=== PATIENT | female | born 1995 | race Hispanic/Latino ===

== ENCOUNTER 2017-10-26 11:29 | Emergency (ER) | payer MEDICAID, OTHER ==
[2017-10-26 12:09] LABS: HCG,QUAL RESULT POSITIVE (NEGATIVE)
[2017-10-26 12:10] LABS: APPEARANCE,URINE Cloudy (CLEAR); BILIRUBIN,URINE Negative (NEGATIVE); COLOR,URINE Dark Yellow (YELLOW); GLUCOSE, URINE (UA) Negative (NEGATIVE); KETONES,URINE 15 mg/dL (NEGATIVE); LEUKOCYTE ESTERASE ,URINE Small (NEGATIVE); NITRATE,URINE Negative (NEGATIVE); OCCULT BLOOD,URINE Negative (NEGATIVE); PROTEIN,URINE Negative (NEGATIVE)
[2017-10-26 12:16] LABS: RBC,URINE 0-1 /HPF (0-1)
[2017-10-26 12:17] LABS: AMORPHOUS SEDIMENT,UR Moderate /LPF (None Seen); BACTERIA,URINE Few /HPF (None Seen); SQUAMOUS EPITHELIAL CELL,UR Few /LPF (0-2)
== END 2017-10-26 14:06 | disposition home or self-care (01) ==
LOC: EDH 11:29
DX: O20.0 Threatened abortion (principal); Z3A.09 9 weeks gestation of pregnancy
CPT/HCPCS: 36415; 76801; 81001; 81025; 84702

== ENCOUNTER 2017-11-24 06:16 | Emergency (ER) | payer MEDICAID, OTHER ==
[2017-11-24 07:03] LABS: APPEARANCE,URINE Clear (CLEAR); BILIRUBIN,URINE Negative (NEGATIVE); COLOR,URINE Yellow (YELLOW); GLUCOSE, URINE (UA) Negative (NEGATIVE); KETONES,URINE Negative (NEGATIVE); LEUKOCYTE ESTERASE ,URINE Moderate (NEGATIVE); NITRATE,URINE Negative (NEGATIVE); OCCULT BLOOD,URINE Negative (NEGATIVE); PH,URINE 6.5 (5.0-8.0); PROTEIN,URINE Negative (NEGATIVE)
[2017-11-24 07:09] LABS: BACTERIA,URINE Rare /HPF (None Seen); RBC,URINE 0-1 /HPF (0-1); SQUAMOUS EPITHELIAL CELL,UR Few /LPF (0-2); WBC,URINE 0-1 /HPF (0-1)
== END 2017-11-24 07:34 | disposition home or self-care (01) ==
LOC: EDH 06:16
DX: O26.892 Other specified pregnancy related conditions, second trimester (principal); R42 Dizziness and giddiness; Z3A.18 18 weeks gestation of pregnancy
CPT/HCPCS: 81001; 81025

== ENCOUNTER 2018-10-19 15:10 | Emergency (ER) | payer MEDICAID, OTHER | END 2018-10-19 15:52 | disposition left against medical advice (07) | LOC: EDH 15:10 | DX: M25.562 Pain in left knee (principal); Z53.21 Procedure and treatment not carried out due to patient leaving prior to being seen by health care provider ==

== ENCOUNTER 2018-11-02 23:04 | Emergency (ER) | payer BC ==
[2018-11-02 23:34] LABS: APPEARANCE,URINE Clear (CLEAR); BILIRUBIN,URINE Negative (NEGATIVE); COLOR,URINE Yellow (YELLOW); GLUCOSE, URINE (UA) Negative (NEGATIVE); KETONES,URINE Negative (NEGATIVE); LEUKOCYTE ESTERASE ,URINE Negative (NEGATIVE); NITRATE,URINE Negative (NEGATIVE); OCCULT BLOOD,URINE Negative (NEGATIVE); PROTEIN,URINE Negative (NEGATIVE)
[2018-11-02 23:36] LABS: HCG,QUAL RESULT NEGATIVE (NEGATIVE)
[2018-11-02] MEDS ORDERED: IOHEXOL-350 75 ML VIAL IV ONE (23:51)
[2018-11-03 00:16] LABS: BASOPHILS % (AUTO) 0.9 % (0.0-5.0); EOSINOPHILS % (AUTO) 1.5 % (0.0-8.0); LYMPHOCYTES % (AUTO) 30.6 % (21.0-51.0); MEAN CORPUSCULAR HEMOGLOBIN 27.8 pg (27.0-33.0); MEAN CORPUSCULAR HGB CONC 33.5 g/dL (32.0-36.0); MEAN CORPUSCULAR VOLUME 83.1 fL (79-99); PLATELET COUNT (AUTO) 266 K/uL (130-400); RED BLOOD CELL COUNT(AUTO) 4.69 MIL/uL (4.00-5.50); WHITE BLOOD COUNT (AUTO) 9.4 K/uL (4.8-10.8)
[2018-11-03 00:24] LABS: CREATININE 0.7 mg/dL (0.5-1.5); POTASSIUM 3.7 mmol/L (3.5-5.1)
[2018-11-03 00:32] LABS: ALBUMIN 3.9 g/dL (3.5-5.0); BILIRUBIN,TOTAL 0.5 mg/dL (0.2-1.0); TOTAL PROTEIN, SERUM 7.4 g/dL (6.0-8.3)
== END 2018-11-03 04:08 | disposition home or self-care (01) ==
LOC: EDH 23:04
DX: R10.10 Upper abdominal pain, unspecified (principal); M54.6 Pain in thoracic spine; R11.2 Nausea with vomiting, unspecified; R19.7 Diarrhea, unspecified
CPT/HCPCS: 36415; 74150; 80053; 81003; 81025; 83690; 85025; 99285; Q9967

== ENCOUNTER 2019-06-25 08:29 | Emergency (ER) | payer BC, OTHER ==
[2019-06-25] MEDS ORDERED: DiphenhydrAMINE HCL 50 MG/ML VIAL ONE (09:11)
[2019-06-25] MEDS ORDERED: PROCHLORPERAZINE EDISYLATE 10 MG/2 ML VIAL ONE (09:12)
[2019-06-25] MEDS ORDERED: SODIUM CHLORIDE 0.9% 500ML 500 ML IV ONE (09:12)
== END 2019-06-25 09:55 | disposition home or self-care (01) ==
LOC: EDH 08:29
DX: R51 Headache (principal); R11.0 Nausea; I10 Essential (primary) hypertension
CPT/HCPCS: 96374; 96375; 99284; J0780; J1200; J7040

== ENCOUNTER 2019-07-20 18:44 | Emergency (ER) | payer SELFPAY | END 2019-07-20 19:23 | disposition home or self-care (01) | LOC: EDH 18:44 | DX: F43.0 Acute stress reaction (principal); F41.9 Anxiety disorder, unspecified ==

== ENCOUNTER 2019-10-23 12:20 | Emergency (ER) | payer OTHER ==
[2019-10-23 13:19] LABS: BASOPHILS % (AUTO) 0.7 % (0.0-5.0); EOSINOPHILS % (AUTO) 1.8 % (0.0-8.0); HEMATOCRIT 38.1 % (36-48); LYMPHOCYTES % (AUTO) 29.8 % (21.0-51.0); MEAN CORPUSCULAR HEMOGLOBIN 27.6 pg (27.0-33.0); MEAN CORPUSCULAR HGB CONC 32.3 g/dL (32.0-36.0); MEAN CORPUSCULAR VOLUME 85.6 fL (79-99); MONOCYTES % (AUTO) 5.4 % (3.0-13.0); NEUTROPHILS % (AUTO) 62.1 % (40.0-77.0); PLATELET COUNT (AUTO) 296 K/uL (130-400); RED BLOOD CELL COUNT(AUTO) 4.45 MIL/uL (4.00-5.50); RED CELL DISTRIBUTION WIDTH 13.2 % (11.0-15.5); WHITE BLOOD COUNT (AUTO) 8.7 K/uL (4.8-10.8)
[2019-10-23] MEDS ORDERED: MAG HYDROX/AL HYDROX/SIMETH ES 30 ML SUSP UDCUP ONE (13:22)
[2019-10-23] MEDS ORDERED: SODIUM CHLORIDE 0.9% 500ML 500 ML IV ONE (13:22)
[2019-10-23] MEDS ORDERED: LIDOCAINE HCL 2% VISCOUS 15 ML UDCUP ONE (13:23)
[2019-10-23 13:33] LABS: AMPHET/METH SCREEN,URINE NEGATIVE (NEGATIVE); BARBITURATE SCREEN, URINE NEGATIVE (NEGATIVE); BENZODIAZEPINES SCREEN,URINE NEGATIVE (NEGATIVE); CANNABINOID SCREEN,URINE NEGATIVE (NEGATIVE); COCAINE SCREEN,URINE NEGATIVE (NEGATIVE); OPIATE SCREEN,URINE NEGATIVE (NEGATIVE); PHENCYCLIDINE SCREEN,URINE NEGATIVE (NEGATIVE)
[2019-10-23 13:49] LABS: ALBUMIN 3.5 g/dL (3.5-5.0); BILIRUBIN,DIRECT 0.2 mg/dL (0.0-0.3); BILIRUBIN,TOTAL 0.7 mg/dL (0.2-1.0); POTASSIUM 3.7 mmol/L (3.5-5.1); TOTAL PROTEIN, SERUM 7.2 g/dL (6.0-8.3)
[2019-10-23 13:57] LABS: CREATININE 0.7 mg/dL (0.5-1.5)
[2019-10-23] MEDS ORDERED: DIAZEPAM 5 MG TABLET ONE (14:54)
== END 2019-10-23 14:56 | disposition home or self-care (01) ==
LOC: EDH 12:20
DX: R07.89 Other chest pain (principal); F41.9 Anxiety disorder, unspecified
CPT/HCPCS: 36415; 71045; 80048; 80076; 80305; 82550; 83690; 84484; 84702; 85025; 93005; 99285; J7040

== ENCOUNTER 2020-04-03 00:59 | Emergency (ER) | payer SELFPAY ==
[2020-04-03] MEDS ORDERED: KETOROLAC TROMETHAMINE 30MG/ML ONE (01:42)
[2020-04-03 02:12] LABS: BASOPHILS % (AUTO) 0.4 % (0.0-5.0); EOSINOPHILS % (AUTO) 1.7 % (0.0-8.0); HEMATOCRIT 37.7 % (36-48); LYMPHOCYTES % (AUTO) 22.9 % (21.0-51.0); MEAN CORPUSCULAR HEMOGLOBIN 27.8 pg (27.0-33.0); MEAN CORPUSCULAR HGB CONC 32.6 g/dL (32.0-36.0); MEAN CORPUSCULAR VOLUME 85.3 fL (79-99); MONOCYTES % (AUTO) 5.8 % (3.0-13.0); PLATELET COUNT (AUTO) 288 K/uL (130-400); RED BLOOD CELL COUNT(AUTO) 4.42 MIL/uL (4.00-5.50); RED CELL DISTRIBUTION WIDTH 13.9 % (11.0-15.5); WHITE BLOOD COUNT (AUTO) 9.8 K/uL (4.8-10.8)
[2020-04-03 02:40] LABS: CREATININE 0.7 mg/dL (0.5-1.5); POTASSIUM 3.4 mmol/L (3.5-5.1)
[2020-04-03 02:42] LABS: INR 0.92 (0.85-1.15); PARTIAL THROMBOPLASTIN TIME 28.7 SEC (26.3-35.5)
[2020-04-03 02:45] LABS: ALBUMIN 3.6 g/dL (3.5-5.0); BILIRUBIN,TOTAL 0.8 mg/dL (0.2-1.0); TOTAL PROTEIN, SERUM 7.3 g/dL (6.0-8.3)
[2020-04-03] MEDS ORDERED: ACETAMINOPHEN 325 MG TAB ONE (02:58)
[2020-04-03 03:19] LABS: APPEARANCE,URINE Clear (CLEAR); BILIRUBIN,URINE Negative (NEGATIVE); COLOR,URINE Yellow (YELLOW); GLUCOSE, URINE (UA) Negative (NEGATIVE); KETONES,URINE Negative (NEGATIVE); LEUKOCYTE ESTERASE ,URINE Trace (NEGATIVE); NITRATE,URINE Negative (NEGATIVE); OCCULT BLOOD,URINE Negative (NEGATIVE); PROTEIN,URINE Negative (NEGATIVE)
[2020-04-03 03:29] LABS: BACTERIA,URINE None Seen /HPF (None Seen); RBC,URINE None Seen /HPF (0-1); WBC,URINE None Seen /HPF (0-1)
== END 2020-04-03 04:18 | disposition home or self-care (01) ==
LOC: EDH 00:59
DX: M94.0 Chondrocostal junction syndrome [Tietze] (principal); F41.9 Anxiety disorder, unspecified
CPT/HCPCS: 36415; 71045; 80053; 81001; 81025; 82550; 84484; 85025; 85610; 85730; 93005; 96374; 99285; J1885

== ENCOUNTER 2020-07-20 19:13 | Emergency (ER) | payer OTHER ==
[2020-07-20] MEDS ORDERED: ONDANSETRON HCL 4 MG/2 ML VIAL ONE (19:28)
[2020-07-20] MEDS ORDERED: FENTANYL CITRATE PF 50 MCG/1 ML 2ML VIAL ONE (19:36)
[2020-07-20 19:41] LABS: BASOPHILS % (AUTO) 0.7 % (0.0-5.0); EOSINOPHILS % (AUTO) 1.6 % (0.0-8.0); HEMATOCRIT 39.8 % (36-48); LYMPHOCYTES % (AUTO) 35.2 % (21.0-51.0); MEAN CORPUSCULAR HEMOGLOBIN 28.9 pg (27.0-33.0); MEAN CORPUSCULAR HGB CONC 33.4 g/dL (32.0-36.0); MEAN CORPUSCULAR VOLUME 86.5 fL (79-99); MONOCYTES % (AUTO) 6.9 % (3.0-13.0); NEUTROPHILS % (AUTO) 55.4 % (40.0-77.0); PLATELET COUNT (AUTO) 321 K/uL (130-400); RED CELL DISTRIBUTION WIDTH 13.2 % (11.0-15.5); WHITE BLOOD COUNT (AUTO) 10.8 K/uL (4.8-10.8)
[2020-07-20 19:55] LABS: CREATININE 0.7 mg/dL (0.5-1.5); POTASSIUM 3.7 mmol/L (3.5-5.1)
[2020-07-20 19:59] LABS: ALBUMIN 3.9 g/dL (3.5-5.0); BILIRUBIN,TOTAL 0.9 mg/dL (0.2-1.0); TOTAL PROTEIN, SERUM 7.5 g/dL (6.0-8.3)
[2020-07-20] MEDS ORDERED: KETOROLAC TROMETHAMINE 30MG/ML ONE (20:36)
== END 2020-07-20 21:40 | disposition home or self-care (01) ==
LOC: EDH 19:13
DX: K80.70 Calculus of gallbladder and bile duct without cholecystitis without obstruction (principal)
CPT/HCPCS: 36415; 76705; 80053; 83690; 84702; 85025; 96374; 96375 ×2; 99284; J1885; J2405; J3010

== ENCOUNTER 2020-07-21 18:29 | Emergency (ER) | payer OTHER ==
[2020-07-21] MEDS ORDERED: ONDANSETRON HCL 4 MG/2 ML VIAL ONE (20:08)
[2020-07-21] MEDS ORDERED: KETOROLAC TROMETHAMINE 30MG/ML ONE (20:08)
[2020-07-21] MEDS ORDERED: SODIUM CHLORIDE 0.9% 1000ML 1,000 ML IV ONE (20:09)
[2020-07-21 20:10] LABS: BASOPHILS % (AUTO) 0.5 % (0.0-5.0); EOSINOPHILS % (AUTO) 1.6 % (0.0-8.0); LYMPHOCYTES % (AUTO) 30.4 % (21.0-51.0); MEAN CORPUSCULAR HGB CONC 33.8 g/dL (32.0-36.0); MEAN CORPUSCULAR VOLUME 85.8 fL (79-99); MONOCYTES % (AUTO) 7.1 % (3.0-13.0); NEUTROPHILS % (AUTO) 60.1 % (40.0-77.0); PLATELET COUNT (AUTO) 267 K/uL (130-400); RED BLOOD CELL COUNT(AUTO) 4.31 MIL/uL (4.00-5.50); RED CELL DISTRIBUTION WIDTH 13.1 % (11.0-15.5); WHITE BLOOD COUNT (AUTO) 9.8 K/uL (4.8-10.8)
[2020-07-21 20:21] LABS: CREATININE 0.8 mg/dL (0.5-1.5); POTASSIUM 3.5 mmol/L (3.5-5.1)
[2020-07-21 20:26] LABS: ALBUMIN 3.4 g/dL (3.5-5.0); BILIRUBIN,TOTAL 0.8 mg/dL (0.2-1.0); TOTAL PROTEIN, SERUM 6.9 g/dL (6.0-8.3)
== END 2020-07-21 21:32 | disposition home or self-care (01) ==
LOC: EDH 18:29
DX: K80.80 Other cholelithiasis without obstruction (principal); F41.9 Anxiety disorder, unspecified
CPT/HCPCS: 36415; 76705; 80053; 82150; 83690; 85025; 96361; 96374; 96375; 99284; J1885; J2405; J7030

== ENCOUNTER 2020-07-28 21:49 | Emergency (ER) | payer OTHER ==
[2020-07-28 22:41] LABS: BASOPHILS % (AUTO) 0.5 % (0.0-5.0); EOSINOPHILS % (AUTO) 1.4 % (0.0-8.0); HEMATOCRIT 40.2 % (36-48); LYMPHOCYTES % (AUTO) 24.2 % (21.0-51.0); MEAN CORPUSCULAR HGB CONC 33.6 g/dL (32.0-36.0); MEAN CORPUSCULAR VOLUME 86.5 fL (79-99); MONOCYTES % (AUTO) 4.2 % (3.0-13.0); NEUTROPHILS % (AUTO) 69.4 % (40.0-77.0); PLATELET COUNT (AUTO) 305 K/uL (130-400); RED BLOOD CELL COUNT(AUTO) 4.65 MIL/uL (4.00-5.50); RED CELL DISTRIBUTION WIDTH 13.2 % (11.0-15.5); WHITE BLOOD COUNT (AUTO) 12.9 K/uL (4.8-10.8)
[2020-07-28 22:56] LABS: CREATININE 1.3 mg/dL (0.5-1.5); POTASSIUM 3.9 mmol/L (3.5-5.1)
[2020-07-28 23:01] LABS: ALBUMIN 4.1 g/dL (3.5-5.0); BILIRUBIN,TOTAL 0.9 mg/dL (0.2-1.0); TOTAL PROTEIN, SERUM 8.2 g/dL (6.0-8.3)
[2020-07-28 23:02] LABS: APPEARANCE,URINE Clear (CLEAR); BILIRUBIN,URINE Negative (NEGATIVE); COLOR,URINE Yellow (YELLOW); GLUCOSE, URINE (UA) Negative (NEGATIVE); KETONES,URINE Negative (NEGATIVE); LEUKOCYTE ESTERASE ,URINE Small (NEGATIVE); NITRATE,URINE Negative (NEGATIVE); OCCULT BLOOD,URINE Negative (NEGATIVE); PROTEIN,URINE Negative (NEGATIVE); UROBILINOGEN,URINE 0.2 mg/dL (0.2-1.0)
[2020-07-28 23:16] LABS: HCG,QUAL RESULT NEGATIVE (NEGATIVE)
[2020-07-28] MEDS ORDERED: CEPHALEXIN 500 MG CAPSULE ONE (23:20)
[2020-07-28 23:21] LABS: BACTERIA,URINE Few /HPF (None Seen); MUCUS,URINE Moderate LPF (None Seen); RBC,URINE None Seen /HPF (0-1); SQUAMOUS EPITHELIAL CELL,UR Few /HPF (0-2)
[2020-07-28] MEDS ORDERED: HYOSCYAMINE SULFATE 0.125 MG TAB.SUBL SL ONE (23:39)
== END 2020-07-28 23:48 | disposition home or self-care (01) ==
LOC: EDH 21:49
DX: N39.0 Urinary tract infection, site not specified (principal); K80.80 Other cholelithiasis without obstruction; F41.9 Anxiety disorder, unspecified
CPT/HCPCS: 36415; 76705; 80053; 81001; 81025; 82150; 83690; 85025; 87088

== ENCOUNTER → 2023-03-20 | Outpatient (CLI) | payer OTHER ==
[~2023-03-20] VITALS: Ht 162.6 cm; Wt 119.5 kg
[2023-03-20 08:52] LABS: BASOPHILS % (AUTO) 0.6 % (0.0-5.0); EOSINOPHILS % (AUTO) 1.9 % (0.0-8.0); HEMATOCRIT 39.7 % (36-48); LYMPHOCYTES % (AUTO) 28.8 % (21.0-51.0); MEAN CORPUSCULAR HEMOGLOBIN 28.3 pg (27.0-33.0); MEAN CORPUSCULAR HGB CONC 32.5 g/dL (32.0-36.0); MEAN CORPUSCULAR VOLUME 87.1 fL (79-99); MONOCYTES % (AUTO) 5.7 % (3.0-13.0); NEUTROPHILS % (AUTO) 62.7 % (40.0-77.0); PLATELET COUNT (AUTO) 283 K/uL (130-400); RED BLOOD CELL COUNT(AUTO) 4.56 MIL/uL (4.00-5.50); RED CELL DISTRIBUTION WIDTH 13.1 % (11.0-15.5); WHITE BLOOD COUNT (AUTO) 6.8 K/uL (4.8-10.8)
[2023-03-20 08:58] VITALS: BP 144/92
[2023-03-20 09:00] LABS: CREATININE 0.6 mg/dL (0.5-1.5); POTASSIUM 3.7 mmol/L (3.5-5.1)
[2023-03-20 09:06] LABS: INR 0.94 (0.85-1.15); PROTHROMBIN TIME 10.3 SEC (9.6-11.6)
== END | disposition home or self-care (01) ==
LOC: DAH 10:00 → EDSTATUS 03-21 10:03
PROVIDERS: ATTEND Surgery
DX: Z01.818 Encounter for other preprocedural examination (principal); Z20.822 Contact with and (suspected) exposure to COVID-19; K81.0 Acute cholecystitis; Z79.01 Long term (current) use of anticoagulants
CPT/HCPCS: 87426; 36415; 80048; 85025; 84703; 85730; 85610; A6260

== ENCOUNTER 2023-03-24 08:17 | Day surgery (SDC) | payer OTHER ==
[2023-03-23 11:20] VITALS: BP 143/93
[~2023-03-24] VITALS: Ht 162.6 cm; Wt 119.7 kg
[2023-03-24] VITALS (21 sets, daily range): BP systolic 125–167; BP diastolic 80–103
[~2023-03-24 08:17] MED LIST: CEFAZOLIN SODIUM 1 GM VIAL IVPB SCH
[2023-03-24] MEDS ORDERED: LACTATED RINGERS 1000ML 1,000 ML IV ONE (09:16)
[2023-03-24] MEDS ORDERED: INDOCYANINE GREEN 25 MG VIAL IJ ONE (10:05)
[2023-03-24] MEDS ORDERED: LIDOCAINE 1%-EPI 1:100,000 20 ML VIAL IJ ONE ×2 (10:18→10:33)
[2023-03-24] MEDS ORDERED: BUPIVACAINE/PF 0.25% 30ML VIAL IJ ONE ×2 (10:18→10:33)
[2023-03-24] MEDS ORDERED: MIDAZOLAM HCL 1 MG/ML 2ML VIAL ONE (10:38)
[2023-03-24] MEDS ORDERED: SUCCINYLCHOLINE 200MG/10ML SYR ONE (10:38)
[2023-03-24] MEDS ORDERED: LIDOCAINE PF 100MG/5ML (2%) SYRINGE 5ML ONE (10:38)
[2023-03-24] MEDS ORDERED: NEOSTIGMINE 5MG/5ML SYR IV ONE (10:38)
[2023-03-24] MEDS ORDERED: ROCURONIUM 10MG/1ML SYR 10 MG/ML ML ONE (10:38)
[2023-03-24] MEDS ORDERED: DEXAMETHASONE SOD PHOSPHATE 10MG/ML 1ML VIAL ONE (10:38)
[2023-03-24] MEDS ORDERED: FENTANYL CITRATE PF 50 MCG/1 ML 2ML VIAL ONE (10:38)
[2023-03-24] MEDS ORDERED: GLYCOPYRROLATE 1 MG/5 ML SYRINGE ONE (10:38)
[2023-03-24] MEDS ORDERED: ONDANSETRON 4MG INJ ONE ×3 (10:38→15:01)
[2023-03-24] MEDS ORDERED: PROPOFOL 10 MG/ML 20ML VIAL IV ONE (10:38)
[2023-03-24] MEDS ORDERED: KETOROLAC 30MG VIAL (30MG/ML) ONE (12:15)
[2023-03-24] MEDS ORDERED: LIDOCAINE HCL-MPF 2% 10ML AMP IJ ONE (12:34)
[2023-03-24] MEDS ORDERED: MEPERIDINE-PF 25 MG/ML SYG ONE ×2 (12:48→14:04)
[2023-03-24] MEDS ORDERED: LABETALOL 20MG SYG IV ONE (13:17)
== END 2023-03-24 15:20 | disposition home or self-care (01) ==
LOC: DAH 08:17
PROVIDERS: ATTEND Surgery
DX: K80.64 Calculus of gallbladder and bile duct with chronic cholecystitis without obstruction (principal); Z20.822 Contact with and (suspected) exposure to COVID-19; K82.8 Other specified diseases of gallbladder; E66.01 Morbid (severe) obesity due to excess calories; F17.200 Nicotine dependence, unspecified, uncomplicated; Z68.41 Body mass index [BMI] 40.0-44.9, adult
CPT/HCPCS: 84703; 36415; 47562; 88304; A6260; A4663; J7030; A4452; J7120; J3010; J0690; J3490 ×6; J0330; J1100; J2710; J2001; J2250; J2704; J2405 ×3; J1885; J2175 ×2; C1769; A4930; A4215; A4223; A4222; A4221; S2900; A4600

== ENCOUNTER 2024-07-31 12:06 | Emergency (ER) | payer OTHER ==
[~2024-07-31] VITALS: Ht 162.6 cm; Wt 116.1 kg
[2024-07-31] MEDS: ketOROlac 15MG/ML VIAL (15MG/ML) IM STA (13:06)
[2024-07-31 14:32] VITALS: BP 132/81; PULSE 85; RESP 18; TEMP 97.7; O2SAT 100
== END 2024-07-31 14:33 | disposition home or self-care (01) ==
LOC: EDH 12:06
DX: S93.402A Sprain of unspecified ligament of left ankle, initial encounter (principal); W01.0XXA Fall on same level from slipping, tripping and stumbling without subsequent striking against object, initial encounter; Y93.89 Activity, other specified; Y92.89 Other specified places as the place of occurrence of the external cause; Y99.8 Other external cause status
CPT/HCPCS: 99284; 73610; 73600; 96372; J1885